=== PATIENT | male | born 1960 | race Caucasian/White ===

== ENCOUNTER → 2016-05-08 | Outpatient (CLI) | payer OTHER ==
[~2016-05-08] MED LIST: ALBU1AER9 INH; ALL300 PO; ASPI1TAB83 PO; ATOR-24 PO; CHOL100010 PO; FLUT110A INH; GLC/500 PO; OMEG10007 PO
[2016-05-08 11:42] LABS: AST/SGOT 33 U/L (15-37); BLOOD UREA NITROGEN 12 mg/dl (7-18); BUN/CREATININE RATIO 12.1 (10-20); CARBON DIOXIDE 26 mmol/L (21-32); CHLORIDE 105 mmol/L (98-107); GLUCOSE 104 mg/dl (70-99); POTASSIUM 4.2 mmol/L (3.5-5.1); SODIUM 141 mmol/L (136-145)
[2016-05-08 11:50] LABS: ALB/GLOB RATIO 1.3 (0.9-2); ALKALINE PHOSPHATASE 57 U/L (45-117); ALT/SGPT 47 U/L (12-78); CHOLESTEROL 232 mg/dl (0-200); CHOLESTEROL/HDL RATIO 4.4; HDL CHOLESTEROL 53 mg/dl; TRIGLYCERIDES 446 mg/dl (0-150)
[2016-05-08 12:02] LABS: RATIO 6.3 mcg/mg (0-30.0)
[2016-05-08 12:25] LABS: ESTIMATED AVERAGE GLUCOSE 120 mg/dl; HA1C FLAG Normal (Normal)
== END | disposition home or self-care (01) ==
LOC: C.LABBC 07:46
PROVIDERS: ATTEND Family Medicine
DX: E11.9 Type 2 diabetes mellitus without complications (principal); E78.5 Hyperlipidemia, unspecified; Z11.59 Encounter for screening for other viral diseases

== ENCOUNTER → 2016-12-26 | Outpatient (CLI) | payer OTHER ==
[2016-12-26 11:17] LABS: ALT/SGPT 40 U/L (12-78); AST/SGOT 25 U/L (15-37); BLOOD UREA NITROGEN 19 mg/dl (7-18); BUN/CREATININE RATIO 18.7 (10-20); CARBON DIOXIDE 28 mmol/L (21-32); CHLORIDE 108 mmol/L (98-107); CHOLESTEROL 166 mg/dl (0-200); CREATININE 0.99 mg/dl (0.60-1.40); GLUCOSE 103 mg/dl (70-99); POTASSIUM 4.4 mmol/L (3.5-5.1); SODIUM 140 mmol/L (136-145); URIC ACID 4.5 mg/dl (2.6-7.2)
[2016-12-26 11:26] LABS: ALB/GLOB RATIO 1.2 (0.9-2); ALKALINE PHOSPHATASE 67 U/L (45-117); HDL CHOLESTEROL 42 mg/dl; TRIGLYCERIDES 409 mg/dl (0-150)
[2016-12-26 11:43] LABS: ESTIMATED AVERAGE GLUCOSE 108 mg/dl; HA1C FLAG Normal (Normal)
== END | disposition home or self-care (01) ==
LOC: C.LABBC 07:36
PROVIDERS: ATTEND Physician Assistant Medical
DX: E11.42 Type 2 diabetes mellitus with diabetic polyneuropathy (principal); R79.9 Abnormal finding of blood chemistry, unspecified; M10.9 Gout, unspecified; E78.5 Hyperlipidemia, unspecified

== ENCOUNTER → 2017-04-03 | Outpatient (CLI) | payer OTHER ==
[2017-04-03 14:00] LABS: THYROID STIMULATING HORMONE 2.49 uIu/ml (0.300-4.500)
== END | disposition home or self-care (01) ==
LOC: C.LABBC 10:08
PROVIDERS: ATTEND Physician Assistant Medical
DX: E05.90 Thyrotoxicosis, unspecified without thyrotoxic crisis or storm (principal)

== ENCOUNTER → 2017-12-02 | Outpatient (CLI) | payer OTHER ==
--- NOTE | 2017-12-02 10:16 | DIAGNOSTIC IMAGING REPORT ---
R FOOT MIN 3 VIEWS ROUTINE, L FOOT MIN 3 VIEWS ROUTINE HISTORY: 57 years-old Male DIABETIC PERIPHERAL NEUROPATHY chronic bilateral foot pain COMPARISON: None available TECHNIQUE: 3 views of the bilateral feet FINDINGS: RIGHT: Fusion of the fifth IP joint. Mild degenerative changes are seen throughout the interphalangeal joints. Bipartite lateral hallux sesamoid. No acute fracture, dislocation or evidence of neuropathic arthropathy. [place] medial deviation of the second DIP joint. Moderate calcified of the plantar calcaneus. 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 Mild apex medial deviation of the second DIP joint. Bipartite medial and lateral hallux sesamoids. No acute fracture, dislocation or evidence of neuropathic arthropathy. No opaque foreign body. Large plantar enthesophyte of the calcaneus. IMPRESSION: 1. No acute fracture or subluxation. 2. Degenerative changes as above. The above report was generated using voice recognition software. It may contain grammatical, syntax or spelling errors. Electronically signed by: Wilson Sanders M.D. 12/02/2017 10:15 AM Dictated Date/Time: 12/02/2017 10:12 AM
[2017-12-02 14:01] LABS: HEMOGLOBIN A1C 5.8 % (4.5-5.6)
[2017-12-02 14:39] LABS: ALBUMIN 4.2 gm/dl (3.4-5.0); ALKALINE PHOSPHATASE 61 U/L (45-117); ALT/SGPT 44 U/L (12-78); AST/SGOT 28 U/L (15-37); BLOOD UREA NITROGEN 13 mg/dl (7-18); CALCIUM 9.3 mg/dl (8.5-10.1); CARBON DIOXIDE 27 mmol/L (21-32); CHOLESTEROL 245 mg/dl (0-200); CREATININE 0.99 mg/dl (0.60-1.40); GLUCOSE 105 mg/dl (70-99); POTASSIUM 4.2 mmol/L (3.5-5.1); SODIUM 138 mmol/L (136-145); TOTAL PROTEIN 7.8 gm/dl (6.4-8.2)
== END | disposition home or self-care (01) ==
LOC: C.RADBC 09:52
PROVIDERS: ATTEND Family Medicine Adult Medicine
DX: E11.40 Type 2 diabetes mellitus with diabetic neuropathy, unspecified (principal); E78.5 Hyperlipidemia, unspecified; M10.9 Gout, unspecified; R79.9 Abnormal finding of blood chemistry, unspecified; E05.90 Thyrotoxicosis, unspecified without thyrotoxic crisis or storm